=== PATIENT | female | born 1950 | race Caucasian/White ===

== ENCOUNTER 2019-12-29 18:18 | Inpatient (IN) | payer MEDICARE, OTHER ==
[2019-12-29] MEDS ORDERED: TYLENOL 325 MG ONE ×2 (18:42→18:55)
[2019-12-29] MEDS ORDERED: Sodium Chloride 0.9% 1000 ML 1,000 ML ONE (18:42)
[2019-12-29] MEDS ORDERED: Sodium Chloride 0.9% 1000 ML 1,000 ML IV STA (18:53)
[2019-12-29] MEDS ORDERED: TYLENOL 325 MG PO STA ×2 (18:53→18:54)
[2019-12-29] MEDS ORDERED: Ventolin Hfa MDI IH ONE (18:58)
[2019-12-29] MEDS ORDERED: VENTOLIN COMMON CANISTER IH STA (19:04)
[2019-12-29 19:11] LABS: Absolute Neutrophil Ct (ANC) 5.81 (1.4-6.9); BASOPHIL % 0.2 % (0.0-0.4); Basophil (Absolute #) 0.01 (0-0.4); Eosinophil (Absolute #) 0 (0-0.5); Hematocrit 37.4 % (35-47); Hemoglobin 12.3 gm/dl (12.0-16.0); Lymphocyte (Absolute #) 0.47 (1.0-4.6); Lymphocytes % 7.2 % (24.0-44.0); Mean Cell Volume 90.1 fl (78-100); Mean Corpuscular Hemoglobin 29.6 pg (26-32); Mean Corpuscular Hgb Concent. 32.9 g/dl (32-36); Mean Platelet Volume 11.6 fl (7.5-11.0); Monocyte (Absolute #) 0.22 (0.0-1.3); Monocytes % 3.4 % (0.0-12.0); Neutrophil % 89.2 % (36.0-66.0); Platelet Count 208 K/mm3 (150-450); Red Blood Count 4.15 M/mm3 (4.1-5.4); Red Cell Distribution Width 14.6 % (11.5-14.0); White Blood Count 6.5 K/mm3 (4.0-10.5)
[2019-12-29 19:26] LABS: Amourphous Crystal FEW /HPF (NEGATIVE); Appearance CLOUDY (CLEAR); Bacteria RARE /HPF (NEGATIVE); Bilirubin NEGATIVE (NEGATIVE); Blood MODERATE Ery/ul (0-5); Epithelial Cells RARE /HPF (FEW); Glucose NEGATIVE (NEGATIVE); Ketones SMALL (NEGATIVE); Leukocyte Esterase NEGATIVE (NEGATIVE); Mucus MODERATE /HPF (NEGATIVE); Nitrite NEGATIVE (NEGATIVE); Protein,Urine Dip 100 (Negative); Specific Gravity 1.027 (1.005-1.025); Urobilinogen 2 mg/dL (0-1)
--- NOTE | 2019-12-29 19:31 | ERPHSYRPT ---
- History of Present Illness Time Seen by Provider: 12/29/19 18:47 Source: patient Exam Limitations: no limitations Patient Subjective Stated Complaint: PT states "I have had a fever since friday and I am getting weaker and weaker. I have also had some shortness of breath." Triage Nursing Assessment: PT presented alert and oriented X 3, skin wpd tp came back in wheelchair unable to sit upright, pt weak and tachypneic. Physician History: 69 years old female presented to the ER with chief complaint of fever for the last 5 days. Initially was low-grade and gradually worsening. Taking over-the- counter antipyretics but does not seem working today. T-max of 102 today. She is also having mild to moderate nonproductive cough with minimal shortness of breath which started today. She is feeling weak dehydrated, fatigued and tired all the time with no energy to do her routine activities. Her symptoms of weakness get worse with ambulation and feels as if she was going to fall down. Denies any nausea vomiting or abdominal pain. No sore throat. No urinary symptoms. Denies any sick contact. Timing/Duration: day(s) (5), gradual onset, worse Fever Severity: moderate Fever Therapy PROPERTY FIELD INSPECTOR: Acetaminophen Associated Symptoms: cough, headache, muscle aches, shortness of breath, weakness, No abdominal pain, No chest pain, No nausea/vomiting, No rhinorrhea, No sore throat, No stiff neck, No syncope Allergies/Adverse Reactions: Sulfa (Sulfonamide Antibiotics) Adverse Reaction (Intermediate, Verified 18:51) abdominal pain Home Medications: Amlodipine Besylate 5 mg [Norvasc 5 mg] 5 mg PO DAILY 12/29/19 [History] Atorvastatin Calcium [Lipitor] 10 mg PO DAILY 12/29/19 [History] Metformin HCl 500 mg [Glucophage 500 MG] 500 mg PO BIDWM 12/29/19 [History ] Sitagliptin Phosphate [Januvia] 100 mg PO DAILY 12/29/19 [History] Hx Tetanus, Diphtheria Vaccination/Date Given: No Hx Influenza Vaccination/Date Given: No Hx Pneumococcal Vaccination/Date Given: No Immunizations Up to Date: Yes Travel Risk - International Travel If Yes where:: [facility] - Coronavirus Screening Has patient experienced Coronavirus symptoms: Yes Symptoms experienced: fever(equal or > 100.4 F), respiratory symptoms ( i.e.Cought,shortness of breath), weakness Date of fever onset:: 12/25/19 Date of respiratory symptoms onset:: 12/25/19 - Review of Systems Constitutional: Fever, Chills, Fatigue, Weakness Eyes: No Symptoms Ears, Nose, & Throat: No Symptoms Respiratory: Cough, Dyspnea on Exertion (HALL) Cardiac: No Symptoms Abdominal/Gastrointestinal: No Symptoms Genitourinary Symptoms: No Symptoms Musculoskeletal: Myalgias Skin: No Symptoms Neurological: No Symptoms Psychological: No Symptoms Endocrine: No Symptoms Hematologic/Lymphatic: No Symptoms Immunological/Allergic: No Symptoms - Past Medical History Pertinent Past Medical History: Yes Neurological History: No Pertinent History ENT History: No Pertinent History Cardiac History: High Cholesterol Respiratory History: No Pertinent History Endocrine Medical History: No Pertinent History Musculoskeletal History: No Pertinent History GI Medical History: No Pertinent History History: No Pertinent History Psycho-Social History: No Pertinent History Female Reproductive Disorders: No Pertinent History - Past Surgical History Past Surgical History: Yes Gastrointestinal: Appendectomy - Social History Smoking Status: Never smoker Exposure to second hand smoke: No Drug Use: none Patient Lives Alone: No - Female History Hx Now: No - Nursing Vital Signs Nursing Vital Signs: Initial Vital Signs Temperature 101.3 F 12/29/19 18:37 Pulse Rate 121 H 12/29/19 18:37 Respiratory Rate 28 H 12/29/19 18:37 Blood Pressure 164/82 12/29/19 18:37 O2 Sat by Pulse Oximetry 92 L 12/29/19 18:37 Pain Scale Pain Intensity 0 - Physical Exam General Appearance: no apparent distress, alert Eye Exam: PERRL/EOMI, eyes nml inspection ENT Exam: no apparent trauma, pharyngeal erythema Neck Exam: normal inspection, non-tender, supple, full range of motion Respiratory Exam: decreased breath sounds, decreased air movement, crackles/ rales Cardiovascular/Chest Exam: normal heart sounds, tachycardia Gastrointestinal/Abdominal Exam: soft, non tender, no distention, no mass, no guarding Extremity Exam: non-tender, normal range of motion, normal inspection Neurologic Exam: alert, oriented x 3, cooperative, marine drafter II-XII nml as tested, normal mood/affect Skin Exam: normal color SpO2 Interpretation: normal SpO2: 92 O2 Delivery: Room Air Ordered Tests: Active Orders 24 hr Category Date Time Status Coat Room Attendant STAT Care 12/29/19 18:51 Active EKG-ER Only STAT Care 12/29/19 18:51 Active Izaguirre [Catheter-[place] Izaguirre] STAT Care 12/29/19 18:51 Active IV Insertion STAT Care 12/29/19 18:51 Active IV Insertion-2nd Peripheral STAT Care 12/29/19 18:51 Active Oxygen-ED Only Nasal Cannula 2 lpm Care 12/29/19 18:52 Active Pulse Oximetry (ED) STAT Care 12/29/19 18:52 Active CHEST 1 VIEW (PORTABLE) Stat Exams 12/29/19 18:57 Taken BLOOD CULTURE Stat Lab 12/29/19 18:45 Received CBC W DIFF Stat Lab 12/29/19 18:40 Completed CMP Stat Lab 12/29/19 18:40 Completed CULTURE,URINE Stat Lab 12/29/19 18:55 Received Lactic Acid Stat Lab 12/29/19 19:10 Completed MAG [MAGNESIUM] Stat Lab 12/29/19 18:40 Completed UA W/RFX UR CULTURE Stat Lab 12/29/19 18:55 Completed Respiratory Therapy Assessment DAILY RT 12/29/19 19:34 Active Transfer Order Routine Transfer 12/29/19 Ordered Medication Summary Generic Name Dose Route Start Last Admin Trade Name Freq PRN Reason Stop Dose Admin Ceftriaxone Sodium/Dextrose 2 g in 50 mls @ 100 mls/hr 12/29/19 19:43 19:55 Rocephin 2 Gm-D5w 50ml Bag IV 12/29/19 20:12 100 mls/hr STAT STA 100 mls/hr Administration Azithromycin 500 mg in 250 mls @ 250 mls/hr 12/29/19 19:43 12/29/19 19:55 Zithromax 500 Mg/ 250 Ml Nacl Premix IV 12/29/19 20:42 250 mls/hr STAT STA 250 mls/hr Administration Discontinued Medications Generic Name Dose Route Start Last Admin Trade Name Freq PRN Reason Stop Dose Admin Acetaminophen Confirm 12/29/19 18:42 Tylenol 325 Mg Administered 12/29/19 18:43 Dose 650 mg .ROUTE .STK-MED ONE Acetaminophen 650 mg 12/29/19 18:53 12/29/19 18:56 Tylenol 325 Mg PO 12/29/19 18:54 Not Given STAT STA Acetaminophen 975 mg 12/29/19 18:54 12/29/19 18:57 Tylenol 325 Mg PO 12/29/19 18:55 975 mg STAT STA Administration Acetaminophen Confirm 12/29/19 18:55 Tylenol 325 Mg Administered 12/29/19 18:56 Dose 325 mg .ROUTE .STK-MED ONE Albuterol Sulfate 2 gm 12/29/19 18:58 Ventolin Hfa Mdi IH 12/29/19 18:59 STAT ONE Albuterol Sulfate 4 puff 12/29/19 19:04 12/29/19 19:18 Ventolin Common Canister IH 12/29/19 19:05 4 puff ONCE STA Administration Sodium Chloride Confirm 12/29/19 18:42 Sodium Chloride 0.9% 1000 Ml Administered 12/29/19 18:43 Dose 1,000 mls @ ud .ROUTE .STK-MED ONE Sodium Chloride 1,000 mls @ 999 mls/hr 12/29/19 18:53 12/29/19 18:57 Sodium Chloride 0.9% 1000 Ml IV 12/29/19 19:53 999 mls/hr .Q1H1M STA Administration Azithromycin Confirm 12/29/19 19:53 Zithromax 500 Mg/ 250 Ml Nacl Premix Administered 12/29/19 19:54 Dose 500 mg in 250 mls @ ud IV .STK-MED ONE Ceftriaxone Sodium/Dextrose Confirm 12/29/19 19:53 Rocephin 2 Gm-D5w 50ml Bag Administered 12/29/19 19:54 Dose 2 g in 50 mls @ ud IV .STK-MED ONE Lab/Rad Data: Laboratory Result Diagrams 12/29/19 18:40 12/29/19 18:40 Laboratory Results 12/29/19 12/29/19 12/29/19 Range/Units 19:10 18:55 18:55 WBC (4.0-10.5) K/mm3 RBC (4.1-5.4) M/mm3 Hgb (12.0-16.0) gm/dl Hct (35-47) % MCV (78-100) fl MCH (26-32) pg MCHC (32-36) g/dl RDW (11.5-14.0) % Plt Count (150-450) K/mm3 MPV (7.5-11.0) fl Gran % (36.0-66.0) % Eos # (Auto) (0-0.5) Absolute Lymphs (auto) (1.0-4.6) Absolute Monos (auto) (0.0-1.3) Lymphocytes % (24.0-44.0) % Monocytes % (0.0-12.0) % Eosinophils % (0.00-5.0) % Basophils % (0.0-0.4) % Absolute Granulocytes (1.4-6.9) Basophils # (0-0.4) Sodium (137-145) mmol/L Potassium (3.5-5.1) mmol/L Chloride (98-107) mmol/L Carbon Dioxide (22-30) mmol/L Anion Gap (5-15) MEQ/L BUN (7-17) mg/dL Creatinine (0.52-1.04) mg/dL Estimated GFR ML/MIN Glucose (74-106) mg/dL Lactic Acid 1.6 (0.4-2.0) Calcium (8.4-10.2) mg/dL Magnesium (1.6-2.3) mg/dL Total Bilirubin (0.2-1.3) mg/dL AST (14-36) U/L ALT (0-35) U/L Alkaline Phosphatase (38-126) U/L Serum Total Protein (6.3-8.2) g/dL Albumin (3.5-5.0) g/dL Urine Color JONNY (YELLOW) Urine Appearance CLOUDY (CLEAR) Urine pH 5.0 (5-6) Ur Specific [place] 1.027 (1.005-1.025) Urine Protein 100 (Negative) Urine Ketones SMALL (NEGATIVE) Urine Blood MODERATE (0-5) Rashel/ul Urine Nitrite NEGATIVE (NEGATIVE) Urine Bilirubin NEGATIVE (NEGATIVE) Urine Urobilinogen 2 (0-1) mg/dL Ur Leukocyte Esterase NEGATIVE (NEGATIVE) Urine WBC (Auto) 3-5 (0-5) /HPF Urine RBC (Auto) 3-5 (0-2) /HPF U Epithel Cells (Auto) RARE (FEW) /HPF Urine Bacteria (Auto) RARE (NEGATIVE) /HPF Amorphous Crystals FEW (NEGATIVE) /HPF Urine Mucus (Auto) MODERATE (NEGATIVE) /HPF Urine Culture Reflexed ORDERED SEPARATELY (NO) Urine Glucose NEGATIVE (NEGATIVE) mg/dL Influenza Type A Ag NEGATIVE (NEGATIVE) Influenza Type B Ag NEGATIVE (NEGATIVE) RSV (PCR) NEGATIVE (Negative) Group A Strep Antibody NOT DETECTED (NEGATIVE) 12/29/19 12/29/19 12/29/19 Range/Units 18:40 18:40 18:40 WBC 6.5 (4.0-10.5) K/mm3 RBC 4.15 (4.1-5.4) M/mm3 Hgb 12.3 (12.0-16.0) gm/dl Hct 37.4 (35-47) % MCV 90.1 (78-100) fl MCH 29.6 (26-32) pg MCHC 32.9 (32-36) g/dl RDW 14.6 H (11.5-14.0) % Plt Count 208 (150-450) K/mm3 MPV 11.6 H (7.5-11.0) fl Gran % 89.2 H (36.0-66.0) % Eos # (Auto) 0 (0-0.5) Absolute Lymphs (auto) 0.47 L (1.0-4.6) Absolute Monos (auto) 0.22 (0.0-1.3) Lymphocytes % 7.2 L (24.0-44.0) % Monocytes % 3.4 (0.0-12.0) % Eosinophils % 0.0 (0.00-5.0) % Basophils % 0.2 (0.0-0.4) % Absolute Granulocytes 5.81 (1.4-6.9) Basophils # 0.01 (0-0.4) Sodium 130 L (137-145) mmol/L Potassium 3.7 (3.5-5.1) mmol/L Chloride 97 L (98-107) mmol/L Carbon Dioxide 21 L (22-30) mmol/L Anion Gap 16.0 H (5-15) MEQ/L BUN 19 H (7-17) mg/dL Creatinine 1.04 (0.52-1.04) mg/dL Estimated GFR 55.5 ML/MIN Glucose 162 H (74-106) mg/dL Lactic Acid (0.4-2.0) Calcium 8.2 L (8.4-10.2) mg/dL Magnesium 2.0 (1.6-2.3) mg/dL Total Bilirubin 0.90 (0.2-1.3) mg/dL AST 76 H (14-36) U/L ALT 24 (0-35) U/L Alkaline Phosphatase 81 (38-126) U/L Serum Total Protein 7.0 (6.3-8.2) g/dL Albumin 3.5 (3.5-5.0) g/dL Urine Color (YELLOW) Urine Appearance (CLEAR) Urine pH (5-6) Ur Specific [place] (1.005-1.025) Urine Protein (Negative) Urine Ketones (NEGATIVE) Urine Blood (0-5) Rashel/ul Urine Nitrite (NEGATIVE) Urine Bilirubin (NEGATIVE) Urine Urobilinogen (0-1) mg/dL Ur Leukocyte Esterase (NEGATIVE) Urine WBC (Auto) (0-5) /HPF Urine RBC (Auto) (0-2) /HPF U Epithel Cells (Auto) (FEW) /HPF Urine Bacteria (Auto) (NEGATIVE) /HPF Amorphous Crystals (NEGATIVE) /HPF Urine Mucus (Auto) (NEGATIVE) /HPF Urine Culture Reflexed (NO) Urine Glucose (NEGATIVE) mg/dL Influenza Type A Ag (NEGATIVE) Influenza Type B Ag (NEGATIVE) RSV (PCR) (Negative) Group A Strep Antibody (NEGATIVE) - Progress Progress: improved, re-examined Progress Note: 12/29/19 19:52 69Years old is evaluated for fever shortness of breath cough and generalized body aches/fatigue. Patient was tachycardic with a fever of 104 on presentation. She is given fluid bolus and Tylenol, on reevaluation her fever is coming down and tachycardia is also better. She has normal white count, chest x-ray consistent with right lower lobe infiltrative pneumonia. Started on Rocephin/Zithromax. We will also obtain COVID testing and will keep her in COVID unit. Discussed with Dr. Regalado and patient is being admitted Discussed with : Other ([place]) Counseled pt/family regarding: lab results, diagnosis, rad results - Departure Departure Disposition: In-patient Admission Clinical Impression: Suspected COVID-19 virus infection Pneumonia Qualifiers: Pneumonia type: due to unspecified organism Laterality: right Lung location: lower lobe of lung Qualified Code(s): J18.9 - Pneumonia, unspecified organism Sepsis Qualifiers: Sepsis type: sepsis due to unspecified organism Sepsis acute organ dysfunction status: unspecified Qualified Code(s): A41.9 - Sepsis, unspecified organism Condition: Stable Critical Care Time: Yes Critical Care Time(excluding separately billable procedures): Critical 30-74 mins Referrals: PAM MCCARTHY [Primary Care Provider] -
[2019-12-29 19:43] LABS: INFLUENZA A NEGATIVE (NEGATIVE); INFLUENZA B NEGATIVE (NEGATIVE); RESPIRATORY SYNCTIAL VIRUS NEGATIVE (Negative)
[2019-12-29] MEDS ORDERED: ROCEPHIN 2 Gm-D5w 50ML BAG** 2 G/50 ML IVPB IV STA (19:43)
[2019-12-29] MEDS ORDERED: Zithromax 500 MG/ 250 ML NaCl Premix 500 MG/250 ML IVPB IV STA (19:43)
[2019-12-29] MEDS ORDERED: Zithromax 500 MG/ 250 ML NaCl Premix 500 MG/250 ML IVPB IV ONE (19:53)
[2019-12-29] MEDS ORDERED: ROCEPHIN 2 Gm-D5w 50ML BAG** 2 G/50 ML IVPB IV ONE (19:53)
[2019-12-29 19:54] LABS: ALBUMIN 3.5 g/dL (3.5-5.0); BILIRUBIN,TOTAL 0.9 mg/dL (0.2-1.3); Calcium 8.2 mg/dL (8.4-10.2); Creatinine 1 1.04 mg/dL (0.52-1.04); Potassium 3.7 mmol/L (3.5-5.1)
[2019-12-29] MEDS ORDERED: Zofran 4 MG/2 ML VIAL IV PRN (20:20)
[2019-12-29] MEDS ORDERED: HUMALOG SQ PRN (20:20)
[2019-12-29] MEDS ORDERED: TYLENOL 325 MG PO PRN (20:20)
[2019-12-29 20:47] LABS: Slide Review 1 YES
[2019-12-29] MEDS ORDERED: Pepcid 20 MG VIAL IV SCH (22:00)
[2019-12-29] MEDS ORDERED: Zocor 10MG ONE (22:34)
[2019-12-29] MEDS: Zocor 10MG PO SCH (23:00)
[2019-12-30 04:56] LABS: Hematocrit 35.4 % (35-47); Hemoglobin 11.6 gm/dl (12.0-16.0); Mean Cell Volume 91.7 fl (78-100); Mean Corpuscular Hemoglobin 30.1 pg (26-32); Mean Corpuscular Hgb Concent. 32.8 g/dl (32-36); Mean Platelet Volume 11.4 fl (7.5-11.0); Platelet Count 182 K/mm3 (150-450); Red Blood Count 3.86 M/mm3 (4.1-5.4); Red Cell Distribution Width 14.9 % (11.5-14.0); White Blood Count 5.3 K/mm3 (4.0-10.5)
[2019-12-30 05:08] LABS: ALBUMIN 3.3 g/dL (3.5-5.0); ALKALINE PHOSPHATASE 81 U/L (38-126); ANION GAP 15.4 MEQ/L (5-15); BLOOD UREA NITROGEN 18 mg/dL (7-17); CHLORIDE 101 mmol/L (98-107); Carbon Dioxide 22 mmol/L (22-30); Creatinine 1 0.91 mg/dL (0.52-1.04); Glucose 156 mg/dL (74-106); Potassium 3.2 mmol/L (3.5-5.1); SGOT/AST 77 U/L (14-36); SGPT/ALT 25 U/L (0-35); SODIUM 135 mmol/L (137-145); Total Protein 6.6 g/dL (6.3-8.2)
[2019-12-30] MEDS: Sodium Chloride 0.9% 10 ML FLUSH Syringe IV SCH ×3 (05:41→21:27)
[2019-12-30] MEDS ORDERED: VENTOLIN COMMON CANISTER IH SCH (07:00)
[2019-12-30] MEDS ORDERED: MAALOX ES 30 ML UNIT DOSE PO PRN (07:00)
[2019-12-30] MEDS ORDERED: MEDICATION INTERVENTION MC SCH (07:15)
[2019-12-30 07:57] LABS: BAND 28 % (0.0-2.0); Lymphocytes 11 % (24-44); Monocyte 3 % (0.0-12.0); Neutrophils 58 % (36.0-66.0); Platelet Estimate INCREASED (NORMAL); Polychromasia 1+; Total Cells Counted 100
[2019-12-30] MEDS ORDERED: Glucophage 500 MG PO SCH ×2 (08:00→22:00)
[2019-12-30] MEDS: TYLENOL EXTRA STRENGTH 500 MG PO PRN ×3 (08:22→20:25)
--- NOTE | 2019-12-30 08:54 | XRAY ---
Dictation: Fever and short of breath. Comparison: None Portable chest demonstrates right infrahilar infiltrate without consolidation/large effusion. Remaining heart and left lung unremarkable. Bony thorax intact with mild degenerative changes.
[2019-12-30] MEDS: Klor Con 10 MEQ PO SCH ×2 (09:43→21:25)
[2019-12-30] MEDS: Januvia 50 MG PO SCH (09:43)
[2019-12-30] MEDS: Vitamin C 500 MG PO SCH (09:43)
[2019-12-30] MEDS: NORVASC 5 MG PO SCH (09:43)
[2019-12-30] MEDS: ENOXAPARIN SODIUM SQ SCH (09:43)
[2019-12-30] MEDS ORDERED: LUTEIN PO SCH (10:00)
[2019-12-30] MEDS ORDERED: ENOXAPARIN SODIUM SQ SCH (10:00)
[2019-12-30] MEDS ORDERED: ZEAXANTHIN PO SCH (10:00)
[2019-12-30] MEDS: Glucophage 500 MG PO SCH (14:49)
[2019-12-30] MEDS: Pepcid 20 MG PO SCH (21:25)
[2019-12-30] MEDS: Zocor 10MG PO SCH (21:27)
[2019-12-30] MEDS: ROCEPHIN 1 Gm-D5w 50 ml Bag** 1 G/50 ML IVPB IV SCH (21:27)
[2019-12-30] MEDS: VENTOLIN COMMON CANISTER IH PRN (21:58)
[2019-12-30] MEDS: Zithromax 500 MG/ 250 ML NaCl Premix 500 MG/250 ML IVPB IV SCH (22:15)
[2019-12-31] MEDS: Sodium Chloride 0.9% 10 ML FLUSH Syringe IV SCH ×3 (05:05→22:07)
[2019-12-31 05:23] LABS: Hematocrit 35.1 % (35-47); Hemoglobin 11.5 gm/dl (12.0-16.0); Mean Cell Volume 91.4 fl (78-100); Mean Corpuscular Hemoglobin 29.9 pg (26-32); Mean Corpuscular Hgb Concent. 32.8 g/dl (32-36); Mean Platelet Volume 11.4 fl (7.5-11.0); Platelet Count 182 K/mm3 (150-450); Red Blood Count 3.84 M/mm3 (4.1-5.4); Red Cell Distribution Width 14.9 % (11.5-14.0); White Blood Count 3.5 K/mm3 (4.0-10.5)
[2019-12-31 05:27] LABS: ANION GAP 13.7 MEQ/L (5-15); Potassium 3.5 mmol/L (3.5-5.1)
[2019-12-31] MEDS: TYLENOL EXTRA STRENGTH 500 MG PO PRN ×2 (06:51→15:25)
[2019-12-31] MEDS: Glucophage 500 MG PO SCH ×2 (07:43→16:19)
[2019-12-31] MEDS ORDERED: Klor Con 10 MEQ PO ONE (09:38)
[2019-12-31] MEDS: Januvia 50 MG PO SCH (09:55)
[2019-12-31] MEDS: NORVASC 5 MG PO SCH (09:55)
[2019-12-31] MEDS: Vitamin C 500 MG PO SCH (09:55)
[2019-12-31] MEDS: ENOXAPARIN SODIUM SQ SCH (09:55)
[2019-12-31] MEDS: Ativan 1 MG PO PRN ×2 (09:56→15:25)
[2019-12-31] MEDS: Klor Con 10 MEQ PO SCH ×2 (09:56→22:04)
--- NOTE | 2019-12-31 11:21 | XRAY ---
Indication: Fever and short of breath. Comparison: December 29, 2019. Portable apical lordotic chest demonstrates minimal clearing of previous right infrahilar infiltrate. Remaining heart and lungs unremarkable. No new cardiopulmonary abnormalities.
[2019-12-31] MEDS: Pepcid 20 MG PO SCH (22:04)
[2019-12-31] MEDS: Zocor 10MG PO SCH (22:05)
[2019-12-31] MEDS: ROCEPHIN 1 Gm-D5w 50 ml Bag** 1 G/50 ML IVPB IV SCH (22:06)
[2019-12-31] MEDS: Zithromax 500 MG/ 250 ML NaCl Premix 500 MG/250 ML IVPB IV SCH (22:07)
[2020-01-01] MEDS: Ativan 1 MG PO PRN (02:30)
[2020-01-01] MEDS: Sodium Chloride 0.9% 10 ML FLUSH Syringe IV SCH ×3 (05:03→20:45)
[2020-01-01] MEDS: TYLENOL EXTRA STRENGTH 500 MG PO PRN (06:16)
[2020-01-01 06:33] LABS: Hematocrit 34.4 % (35-47); Hemoglobin 11.2 gm/dl (12.0-16.0); Mean Corpuscular Hemoglobin 29.6 pg (26-32); Mean Corpuscular Hgb Concent. 32.6 g/dl (32-36); Mean Platelet Volume 11.5 fl (7.5-11.0); Platelet Count 231 K/mm3 (150-450); Red Blood Count 3.78 M/mm3 (4.1-5.4); Red Cell Distribution Width 15.1 % (11.5-14.0); White Blood Count 4.2 K/mm3 (4.0-10.5)
[2020-01-01 06:40] LABS: ALBUMIN 3.2 g/dL (3.5-5.0); ALKALINE PHOSPHATASE 102 U/L (38-126); ANION GAP 13.9 MEQ/L (5-15); BLOOD UREA NITROGEN 13 mg/dL (7-17); CHLORIDE 100 mmol/L (98-107); Calcium 8.3 mg/dL (8.4-10.2); Carbon Dioxide 23 mmol/L (22-30); Creatinine 1 0.83 mg/dL (0.52-1.04); Glucose 107 mg/dL (74-106); Potassium 3.7 mmol/L (3.5-5.1); SGOT/AST 127 U/L (14-36); SGPT/ALT 33 U/L (0-35); SODIUM 133 mmol/L (137-145); Total Protein 6.5 g/dL (6.3-8.2)
[2020-01-01] MEDS: Glucophage 500 MG PO SCH ×2 (07:19→17:23)
[2020-01-01] MEDS: ENOXAPARIN SODIUM SQ SCH (09:59)
[2020-01-01] MEDS: Januvia 50 MG PO SCH (09:59)
[2020-01-01] MEDS: NORVASC 5 MG PO SCH (10:00)
[2020-01-01] MEDS: Vitamin C 500 MG PO SCH (10:00)
[2020-01-01] MEDS: Klor Con 10 MEQ PO SCH ×2 (10:00→20:45)
[2020-01-01] MEDS: Vibramycin 100 MG PO SCH (11:41)
[2020-01-01] MEDS ORDERED: Ativan 1 MG PO PRN (12:26)
[2020-01-01] MEDS: HUMALOG SQ PRN (17:23)
[2020-01-01] MEDS: ROCEPHIN 1 Gm-D5w 50 ml Bag** 1 G/50 ML IVPB IV SCH (20:44)
[2020-01-01] MEDS: Pepcid 20 MG PO SCH (20:44)
[2020-01-01] MEDS: Zocor 10MG PO SCH (20:44)
[2020-01-02] MEDS: TYLENOL EXTRA STRENGTH 500 MG PO PRN (01:10)
[2020-01-02 02:58] LABS: A-aADO2 57; ABG POTASSIUM 3.2 (3.5-5.1); ABG SITE RIGHT BRACHIAL; ARTERIAL BLD GAS O2 SATURATION 99.1 % (95-100); ARTERIAL BLOOD GAS BASE EXCESS 0.6 (-2.0-2.0); ARTERIAL BLOOD GAS FIO2 28 %; ARTERIAL BLOOD GAS PCO2 36 mmHg (35-45); ARTERIAL BLOOD GAS PO2 98 mmHg (75-100); ARTERIAL BLOOD GAS pH 7.44 (7.35-7.45); HCO3- 24.5 (22-28); HGB O2 SAT 96.7 g/dF (94-100); Methhemoglobin 1.3 % (1.4-1.5); paO2 pAO1 0.63
[2020-01-02 03:40] LABS: Hemoglobin 10.5 gm/dl (12.0-16.0); Mean Cell Volume 91.2 fl (78-100); Mean Corpuscular Hgb Concent. 31.8 g/dl (32-36); Mean Platelet Volume 10.3 fl (7.5-11.0); Platelet Count 218 K/mm3 (150-450); Red Blood Count 3.62 M/mm3 (4.1-5.4); Red Cell Distribution Width 15.3 % (11.5-14.0)
[2020-01-02 03:52] LABS: ALKALINE PHOSPHATASE 99 U/L (38-126); ANION GAP 13.2 MEQ/L (5-15); BLOOD UREA NITROGEN 13 mg/dL (7-17); CHLORIDE 99 mmol/L (98-107); Calcium 8.3 mg/dL (8.4-10.2); Carbon Dioxide 26 mmol/L (22-30); Creatinine 1 0.87 mg/dL (0.52-1.04); Glucose 161 mg/dL (74-106); Potassium 3.3 mmol/L (3.5-5.1); SGOT/AST 137 U/L (14-36); SGPT/ALT 34 U/L (0-35); SODIUM 134 mmol/L (137-145); Total Protein 6.3 g/dL (6.3-8.2)
[2020-01-02] MEDS: VENTOLIN COMMON CANISTER IH PRN ×2 (03:58→20:08)
[2020-01-02 04:02] LABS: NT PRO BNP 794 pg/mL (0-900)
[2020-01-02 04:03] LABS: TROPONIN < 0.012 ng/mL (0.000-0.034)
[2020-01-02] MEDS: Sodium Chloride 0.9% 10 ML FLUSH Syringe IV SCH ×3 (05:36→21:13)
--- NOTE | 2020-01-02 07:25 | XRAY ---
Indication: Pneumonia. Change in lung sounds. Comparison: December 31, 2019. Portable apical lordotic chest unchanged again demonstrating right infrahilar infiltrate without consolidation/large effusion. Remaining heart and left lung unremarkable. Comment: Preliminary interpretation was made by [facility]. No critical discrepancy.
[2020-01-02] MEDS: Glucophage 500 MG PO SCH ×2 (08:10→16:54)
[2020-01-02] MEDS: Januvia 50 MG PO SCH (09:07)
[2020-01-02] MEDS: Vitamin C 500 MG PO SCH (09:07)
[2020-01-02] MEDS: Klor Con 10 MEQ PO SCH ×2 (09:07→21:13)
[2020-01-02] MEDS: ENOXAPARIN SODIUM SQ SCH (09:07)
[2020-01-02] MEDS: NORVASC 5 MG PO SCH (09:07)
[2020-01-02] MEDS ORDERED: Zithromax 500 MG/ 250 ML NaCl Premix 500 MG/250 ML IVPB IV SCH (10:00)
[2020-01-02] MEDS: Vibramycin 100 MG PO SCH (11:31)
--- NOTE | 2020-01-02 12:56 | PCM.NOTE ---
Date and Time: 01/02/20 1248 Subjective Assessment: Overnight pt was tachypneic - repeat CXR unchanged, ABG wnl, O2 sat fine on 2L NC, troponin nl and EKG nonacute. Zithromax IV was added to IV rocephin. Pt was better by this morning. I saw the patient as she had just returned from the bathroom, so she was tachypneic then as well. Feeling very weak. Still having some cough. Eliza po but decreased appetite. - Review of Systems Constitutional: Fever (Tmax 101.1), Weakness Respiratory: Cough, Short Of Breath Objective Exam General Appearance: mild distress, alert, other (short of breath) Neurologic Exam: oriented x 3, cooperative Skin Exam: normal color, warm, dry, No rash Ears, Nose, Throat Exam: moist mucous membranes Neck Exam: normal inspection Respiratory Exam: diminished breath sounds, rhonchi (RLL), No wheezing Cardiovascular Exam: regular rate/rhythm, normal heart sounds, No murmur Extremity Exam: swelling (trace pretibial bilat) OBJECTIVE DATA Vital Signs: Vital Signs - 24 hr Temp Pulse Resp BP Pulse Ox 01/02/20 12:00 99.4 F 100 H 25 H 131/84 91 L 01/02/20 08:00 97.7 F 88 28 H 124/77 92 L 01/02/20 07:14 104 H 24 95 01/02/20 04:00 98.2 F 119 H 25 H 116/60 93 L 01/02/20 03:58 109 H 34 H 93 L 01/01/20 23:38 101.1 F 98 H 30 H 136/71 94 L 01/01/20 20:00 98.9 F 102 H 18 120/70 96 01/01/20 19:11 101 H 29 H 96 01/01/20 15:40 98.4 F 86 18 128/67 95 Pain Assessment - Last Documented Pain Intensity 0 Pain Scale Used 0-10 Pain Scale Intake and Output: Intake & Output 12/31/19 01/01/20 01/02/20 01/03/20 11:59 11:59 11:59 11:59 Intake Total 1373 311 7646 Output Total 1400 1350 2500 Balance -182 -659 -400 Weight 101.4 kg 98.8 kg 98.2 kg Lab Results: Accuchecks Date 01/02/20 Date 01/02/20 Date 01/01/20 Time 11:30 Time 07:30 Time 16:30 Accucheck Value: 167 Accucheck Value: 186 Accucheck Value: 167 Accucheck Value: 272 Lab Results-Last 24 Hours 01/02/20 01/02/20 01/02/20 Range/Units 02:49 02:49 03:37 WBC 4.0 (4.0-10.5) K/mm3 RBC 3.62 L (4.1-5.4) M/mm3 Hgb 10.5 L (12.0-16.0) gm/dl Hct 33.0 L (35-47) % MCV 91.2 (78-100) fl MCH 29.0 (26-32) pg MCHC 31.8 L (32-36) g/dl RDW 15.3 H (11.5-14.0) % Plt Count 218 (150-450) K/mm3 MPV 10.3 (7.5-11.0) fl Puncture Site RIGHT BRACHIAL pCO2 36 (35-45) mmHg pO2 98 (75-100) mmHg Base Excess 0.6 (-2.0-2.0) O2 Saturation 96.7 (94-100) g/dF ABG pH 7.44 (7.35-7.45) ABG HCO3 24.5 (22-28) ABG O2 Sat (Measured) 99.1 (95-100) % Papo Test NOT APPLICABLE A-a Gradient 57 a/A Ratio 0.63 Hemoglobin 11.0 Carboxyhemoglobin 1.0 (0.0-6.9) % THgb Methemoglobin 1.3 L (1.4-1.5) % Potassium 3.2 L (3.5-5.1) Temperature 37.0 C POC O2 Flow Rate 28 % Sodium (137-145) mmol/L Chloride (98-107) mmol/L Carbon Dioxide (22-30) mmol/L Anion Gap (5-15) MEQ/L BUN (7-17) mg/dL Creatinine (0.52-1.04) mg/dL Estimated GFR ML/MIN Glucose (74-106) mg/dL Lactic Acid 1.0 (0.4-2.0) Calcium (8.4-10.2) mg/dL Magnesium (1.6-2.3) mg/dL Total Bilirubin (0.2-1.3) mg/dL AST (14-36) U/L ALT (0-35) U/L Alkaline Phosphatase (38-126) U/L Troponin I (0.000-0.034) ng/mL NT-Pro-B Natriuret Pep (0-900) pg/mL Serum Total Protein (6.3-8.2) g/dL Albumin (3.5-5.0) g/dL 01/02/20 01/02/20 01/02/20 Range/Units 03:37 03:37 03:37 WBC (4.0-10.5) K/mm3 RBC (4.1-5.4) M/mm3 Hgb (12.0-16.0) gm/dl Hct (35-47) % MCV (78-100) fl MCH (26-32) pg MCHC (32-36) g/dl RDW (11.5-14.0) % Plt Count (150-450) K/mm3 MPV (7.5-11.0) fl Puncture Site pCO2 (35-45) mmHg pO2 (75-100) mmHg Base Excess (-2.0-2.0) O2 Saturation (94-100) g/dF ABG pH (7.35-7.45) ABG HCO3 (22-28) ABG O2 Sat (Measured) (95-100) % Papo Test A-a Gradient a/A Ratio Hemoglobin Carboxyhemoglobin (0.0-6.9) % THgb Methemoglobin (1.4-1.5) % Potassium 3.3 L (3.5-5.1) Temperature C POC O2 Flow Rate % Sodium 134 L (137-145) mmol/L Chloride 99 (98-107) mmol/L Carbon Dioxide 26 (22-30) mmol/L Anion Gap 13.2 (5-15) MEQ/L BUN 13 (7-17) mg/dL Creatinine 0.87 (0.52-1.04) mg/dL Estimated GFR > 60.0 ML/MIN Glucose 161 H (74-106) mg/dL Lactic Acid (0.4-2.0) Calcium 8.3 L (8.4-10.2) mg/dL Magnesium 1.9 (1.6-2.3) mg/dL Total Bilirubin 0.50 (0.2-1.3) mg/dL AST 137 H (14-36) U/L ALT 34 (0-35) U/L Alkaline Phosphatase 99 (38-126) U/L Troponin I < 0.012 (0.000-0.034) ng/mL NT-Pro-B Natriuret Pep 794 (0-900) pg/mL Serum Total Protein 6.3 (6.3-8.2) g/dL Albumin 3.0 L (3.5-5.0) g/dL Radiology Exams: Radiology Procedures Category Date Time Status CHEST 1 VIEW (PORTABLE) Stat Exams 01/02/20 03:18 Completed Multi-Disciplinary Progress Notes: Multi-Disciplinary Progress Notes 01/02/20 05:07 Respiratory Note by Rossana Woodward 01/02/2020 02:40 PT IS TACHYPNEIC AND DIAPHORETIC, AND HER LUNGS HAVE CRACKLES AND WHEEZES UPON AUSCULTATION . AN ABG AND A LACTIC ACID WERE ORDERED AT THIS TIME PER R.T. PROTOCOL DUE TO PT'S WORSENING CONDITION. PT'S NURSE REQUESTED THE LACTIC DUE TO PT'S PNEUMONIA AND POSSIBLE SEPSIS. DR. RIGGS WAS CALLED WITH THE RESULTS OF THE ABG. Initialized on 01/02/20 05:07 - END OF NOTE Assessment/Plan (1) Pneumonia Current Visit: Yes Status: Acute Qualifiers: Pneumonia type: due to unspecified organism Laterality: right Lung location: lower lobe of lung Qualified Code(s): J18.9 - Pneumonia, unspecified organism Assessment & Plan: Changed IV antibiotics from rocephin/zithromax to levaquin. I'm unsure why she' s also on doxycycline 100mg once daily and am trying to find the answer to that. Code(s): J18.9 - PNEUMONIA, UNSPECIFIED ORGANISM (2) Hypokalemia Current Visit: Yes Status: Acute Assessment & Plan: restarted IV fluids slowly with K+ added. Code(s): E87.6 - HYPOKALEMIA
[2020-01-02] MEDS: solu-MEDROL 40 MG IV SCH ×2 (15:29→21:13)
[2020-01-02] MEDS: Sodium Chloride 0.9% W/ 20 mEq KCl/LITER 1,000 ML IV SCH (15:29)
[2020-01-02] MEDS: Zocor 10MG PO SCH (21:12)
[2020-01-02] MEDS: Pepcid 20 MG PO SCH (21:13)
[2020-01-03 05:17] LABS: Hematocrit 32.7 % (35-47); Hemoglobin 10.1 gm/dl (12.0-16.0); Mean Corpuscular Hgb Concent. 30.9 g/dl (32-36); Mean Platelet Volume 10.8 fl (7.5-11.0); Platelet Count 255 K/mm3 (150-450); Red Blood Count 3.48 M/mm3 (4.1-5.4); Red Cell Distribution Width 15.5 % (11.5-14.0); White Blood Count 3.6 K/mm3 (4.0-10.5)
[2020-01-03 05:41] LABS: ALKALINE PHOSPHATASE 99 U/L (38-126); ANION GAP 15.6 MEQ/L (5-15); BLOOD UREA NITROGEN 15 mg/dL (7-17); CHLORIDE 102 mmol/L (98-107); Calcium 8.8 mg/dL (8.4-10.2); Carbon Dioxide 25 mmol/L (22-30); Creatinine 1 0.73 mg/dL (0.52-1.04); Glucose 260 mg/dL (74-106); Potassium 4.3 mmol/L (3.5-5.1); SGOT/AST 156 U/L (14-36); SGPT/ALT 45 U/L (0-35); SODIUM 138 mmol/L (137-145); Total Protein 6.3 g/dL (6.3-8.2)
[2020-01-03] MEDS: Glucophage 500 MG PO SCH ×2 (07:49→17:00)
[2020-01-03] MEDS: Sodium Chloride 0.9% 10 ML FLUSH Syringe IV SCH ×3 (07:52→21:51)
[2020-01-03] MEDS: ENOXAPARIN SODIUM SQ SCH (09:56)
[2020-01-03] MEDS: Januvia 50 MG PO SCH (09:57)
[2020-01-03] MEDS: Levofloxacin 500MG/100ML D5W 500 MG/100 ML BAG IV SCH (09:57)
[2020-01-03] MEDS: Klor Con 10 MEQ PO SCH ×2 (09:57→21:51)
[2020-01-03] MEDS: solu-MEDROL 40 MG IV SCH ×2 (09:57→21:50)
[2020-01-03] MEDS: NORVASC 5 MG PO SCH (09:57)
[2020-01-03] MEDS: Vitamin C 500 MG PO SCH (09:58)
[2020-01-03] MEDS: Sodium Chloride 0.9% W/ 20 mEq KCl/LITER 1,000 ML IV SCH (10:00)
--- NOTE | 2020-01-03 10:46 | PCM.NOTE ---
Date and Time: 01/03/20 1040 Subjective Assessment: Patient reports continued fatigue. She reports fever is better. She was tested twice for covid and both were negative. She has no sick contacts. She denies runny nose or cough at this time. She denies feeling short of breath. She denies smoking. She denies hx of copd or asthma. She denies wearing oxygen at home. Handwritten notes from when she was on the covid unit are illegible. Dr. Vines noted that she changed her antibiotics yesterday. Patient does not feel strong enough to take care of herself at home at this time. - Review of Systems Constitutional: Fatigue Respiratory: No Symptoms Cardiac: No Symptoms Abdominal/Gastrointestinal: No Symptoms Objective Exam General Appearance: no apparent distress, obese, other (cough with deep breath; mild tachypnea) Neurologic Exam: alert, cooperative, normal mood/affect Skin Exam: normal color, warm, dry Respiratory Exam: normal breath sounds, lungs clear, No crackles/rales, No rhonchi, No wheezing Cardiovascular Exam: regular rate/rhythm, normal heart sounds, No murmur, No friction rub, No gallop Gastrointestinal/Abdomen Exam: soft, normal bowel sounds, No tenderness, No distention, No mass OBJECTIVE DATA Vital Signs: Vital Signs - 24 hr Temp Pulse Resp BP Pulse Ox 01/03/20 08:00 97.5 F 69 21 127/60 97 01/03/20 07:23 70 26 H 95 01/03/20 03:28 97.5 F 90 21 132/87 95 01/02/20 23:47 97.6 F 84 20 127/68 94 L 01/02/20 20:08 94 H 28 H 92 L 01/02/20 19:49 97.9 F 93 H 15 133/67 95 01/02/20 16:00 98.0 F 116 H 16 129/85 94 L 01/02/20 12:00 99.4 F 100 H 25 H 131/84 91 L Oxygen-Last 24 hours Oxygen Flowrate (L/min)-RT 2 Oxygen Flowrate (L/min)-RT 2 Pain Assessment - Last Documented Pain Intensity 0 Pain Scale Used 0-10 Pain Scale Intake and Output: Intake & Output 01/01/20 01/02/20 01/03/20 01/04/20 06:59 06:59 06:59 06:59 Intake Total 476 1860 1353 240 Output Total 1350 2500 100 400 Balance -034 -328 1253 -160 Weight 98.8 kg 98.2 kg 98.4 kg Lab Results: Accuchecks Date 01/02/20 Date 01/02/20 Date 01/02/20 Time 22:00 Time 16:30 Time 11:30 Accucheck Value: 260 Accucheck Value: 228 Accucheck Value: 164 Accucheck Value: 167 Lab Results-Last 24 Hours 01/03/20 01/03/20 Range/Units 04:45 04:45 WBC 3.6 L (4.0-10.5) K/mm3 RBC 3.48 L (4.1-5.4) M/mm3 Hgb 10.1 L (12.0-16.0) gm/dl Hct 32.7 L (35-47) % MCV 94.0 (78-100) fl MCH 29.0 (26-32) pg MCHC 30.9 L (32-36) g/dl RDW 15.5 H (11.5-14.0) % Plt Count 255 (150-450) K/mm3 MPV 10.8 (7.5-11.0) fl Sodium 138 (137-145) mmol/L Potassium 4.3 D (3.5-5.1) mmol/L Chloride 102 (98-107) mmol/L Carbon Dioxide 25 (22-30) mmol/L Anion Gap 15.6 H (5-15) MEQ/L BUN 15 (7-17) mg/dL Creatinine 0.73 (0.52-1.04) mg/dL Estimated GFR > 60.0 ML/MIN Glucose 260 H (74-106) mg/dL Calcium 8.8 (8.4-10.2) mg/dL Total Bilirubin 0.50 (0.2-1.3) mg/dL AST 156 H (14-36) U/L ALT 45 H (0-35) U/L Alkaline Phosphatase 99 (38-126) U/L Serum Total Protein 6.3 (6.3-8.2) g/dL Albumin 3.0 L (3.5-5.0) g/dL Radiology Exams: Radiology Procedures Category Date Time Status CHEST 1 VIEW (PORTABLE) Stat Exams 01/02/20 03:18 Completed CHEST 2 VIEWS (PA AND LAT) Routine Exams 01/03/20 Ordered Assessment/Plan (1) Pneumonia Current Visit: Yes Status: Acute Qualifiers: Pneumonia type: due to unspecified organism Laterality: right Lung location: lower lobe of lung Qualified Code(s): J18.9 - Pneumonia, unspecified organism Assessment & Plan: Continue doxycycline (stated 01/01/20) and levofloxacin started 01/03/20. She was on ceftiaxone from 01/01/20 to 01/02/20. Continue oxygen as needed. RT following as needed. Code(s): J18.9 - PNEUMONIA, UNSPECIFIED ORGANISM (2) Tachypnea Current Visit: Yes Status: Acute Assessment & Plan: Checking D-dimer and BNP. Based on these results may need chest CT or cardiac Echo. Code(s): R06.82 - TACHYPNEA, NOT ELSEWHERE CLASSIFIED (3) Diabetes type 2, controlled Current Visit: Yes Status: Acute Qualifiers: Diabetes mellitus jail insulin use: without watermaster use Diabetes mellitus complication status: without complication Qualified Code(s): E11.9 - Type 2 diabetes mellitus without complications Assessment & Plan: Continue current medication. Code(s): E11.9 - TYPE 2 DIABETES MELLITUS WITHOUT COMPLICATIONS (4) Elevated liver function tests Current Visit: Yes Status: Acute Assessment & Plan: May be due to illness or medication. Will check hep a, b, and C panel. Will continue to monitor. Code(s): R79.89 - OTHER SPECIFIED ABNORMAL FINDINGS OF BLOOD CHEMISTRY
[2020-01-03] MEDS ORDERED: TYLENOL EXTRA STRENGTH 500 MG PO PRN (10:53)
[2020-01-03] MEDS: Vibramycin 100 MG PO SCH (11:03)
--- NOTE | 2020-01-03 12:40 | XRAY ---
Indication: Follow-up pneumonia. Comparison: One day earlier. PA/lateral chest demonstrates minimal improvement right lower lobe infiltrate which still persists. Remaining heart and lungs unremarkable.
--- NOTE | 2020-01-03 12:46 | XRAY ---
Indication: Pneumonia. Elevated d-dimer. Multiple contiguous axial images obtained through the chest using 96 cc Isovue 370 contrast and PE protocol. Comparison: None Mild respiration artifact. There is good opacification of the pulmonary arteries to include the lobar and segmental branches. No filling defect or pulmonary embolus. Heart is not enlarged. Aorta is normal in course and caliber. Small mediastinal lymph nodes, none pathologically enlarged. Lungs demonstrate patchy right lower lobe airspace disease with multifocal consolidations. No effusion. Remaining lungs clear with minimal left lung dependent atelectasis. Bony thorax intact with mild degenerative changes throughout the spine. Limited upper abdomen unremarkable. Impression: 1. Respiration artifact. 2. Negative pulmonary embolus. 3. Right lower lobe consolidating airspace disease without effusion.
[2020-01-03] MEDS: HUMALOG SQ PRN ×3 (13:15→21:51)
[2020-01-03] MEDS: Pepcid 20 MG PO SCH (21:50)
[2020-01-03] MEDS: Zocor 10MG PO SCH (21:51)
[2020-01-04 04:35] LABS: Hematocrit 31.4 % (35-47); Hemoglobin 9.7 gm/dl (12.0-16.0); Mean Corpuscular Hgb Concent. 30.9 g/dl (32-36); Mean Platelet Volume 10.7 fl (7.5-11.0); Platelet Count 321 K/mm3 (150-450); Red Blood Count 3.34 M/mm3 (4.1-5.4); Red Cell Distribution Width 15.4 % (11.5-14.0); White Blood Count 6.6 K/mm3 (4.0-10.5)
[2020-01-04 05:14] LABS: ALBUMIN 2.8 g/dL (3.5-5.0); ALKALINE PHOSPHATASE 111 U/L (38-126); ANION GAP 8.7 MEQ/L (5-15); BLOOD UREA NITROGEN 22 mg/dL (7-17); CHLORIDE 107 mmol/L (98-107); Calcium 8.7 mg/dL (8.4-10.2); Carbon Dioxide 26 mmol/L (22-30); Creatinine 1 0.73 mg/dL (0.52-1.04); Glucose 300 mg/dL (74-106); Potassium 4.3 mmol/L (3.5-5.1); SGOT/AST 124 U/L (14-36); SGPT/ALT 48 U/L (0-35); SODIUM 137 mmol/L (137-145)
[2020-01-04] MEDS: Sodium Chloride 0.9% 10 ML FLUSH Syringe IV SCH ×3 (06:57→22:29)
[2020-01-04 07:28] LABS: BAND 2 % (0.0-2.0); Lymphocytes 10 % (24-44); Neutrophils 88 % (36.0-66.0); Total Cells Counted 100; Toxic Granulation 2+
[2020-01-04 07:29] LABS: ANISOCYTOSIS 1+; Platelet Estimate NORMAL (NORMAL)
[2020-01-04] MEDS: Glucophage 500 MG PO SCH ×2 (07:59→16:51)
[2020-01-04] MEDS: HUMALOG SQ PRN ×4 (07:59→22:22)
[2020-01-04] MEDS ORDERED: Lantus Insulin SQ ONE (08:30)
[2020-01-04] MEDS: Levofloxacin 500MG/100ML D5W 500 MG/100 ML BAG IV SCH (09:15)
[2020-01-04] MEDS: solu-MEDROL 40 MG IV SCH (09:18)
[2020-01-04] MEDS: Januvia 50 MG PO SCH (09:20)
[2020-01-04] MEDS: NORVASC 5 MG PO SCH (09:21)
[2020-01-04] MEDS: Klor Con 10 MEQ PO SCH ×2 (09:21→22:21)
[2020-01-04] MEDS: Vitamin C 500 MG PO SCH (09:21)
[2020-01-04] MEDS: ENOXAPARIN SODIUM SQ SCH (09:22)
[2020-01-04 10:08] LABS: HEPATITIS A IGM Non Reactive (Non Reactive); HEPATITIS B VIRUS CORE TOT AB Non Reactive (Non Reactive); HEPATITIS C VIRUS ANTIBODY Non Reactive (Non Reactive); Hepatitis B Surface Ab.Quant. <3.50 mIU/mL (0.00-8.49); Hepatitis B Surface Antigen Non Reactive (Non Reactive)
--- NOTE | 2020-01-04 10:34 | PCM.NOTE ---
Date and Time: 01/04/20 1030 Subjective Assessment: Patient reports that she did not sleep well last night. She reports her breathing is about the same. She would like to go home but understands she may not strong enough to take care of herself and would prefer not to have oxygen at home. - Review of Systems Constitutional: Fatigue Eyes: No Symptoms Ears, Nose, & Throat: No Symptoms Respiratory: Short Of Breath Cardiac: No Symptoms Abdominal/Gastrointestinal: No Symptoms Genitourinary Symptoms: No Symptoms Musculoskeletal: No Symptoms Objective Exam General Appearance: no apparent distress Neurologic Exam: alert, cooperative Skin Exam: normal color, warm, dry, No rash Respiratory Exam: other (crackles at right lung base; equal breath sounds), No rhonchi, No wheezing Cardiovascular Exam: regular rate/rhythm, No murmur, No friction rub, No gallop Gastrointestinal/Abdomen Exam: soft, normal bowel sounds, No tenderness, No distention, No mass Extremity Exam: other (no c/c/e) OBJECTIVE DATA Vital Signs: Vital Signs - 24 hr Temp Pulse Resp BP Pulse Ox 01/04/20 07:56 95 01/04/20 07:09 98.0 F 72 18 134/70 96 01/04/20 04:00 97.6 F 87 20 139/63 95 01/04/20 00:00 97.1 F 76 20 124/59 96 01/03/20 20:00 96.5 F 90 22 121/65 96 01/03/20 19:03 95 01/03/20 16:00 98.3 F 84 22 110/64 96 01/03/20 12:00 97.6 F 77 24 126/76 96 Pain Assessment - Last Documented Pain Intensity 0 Pain Scale Used 0-10 Pain Scale Intake and Output: Intake & Output 01/02/20 01/03/20 01/04/20 01/05/20 06:59 06:59 06:59 06:59 Intake Total 1860 1353 2008 240 Output Total 2500 100 1100 Balance -640 1253 908 240 Weight 98.2 kg 98.4 kg 99.5 kg Lab Results: Accuchecks Date 01/04/20 Date 01/03/20 Time 05:00 Time 21:00 Accucheck Value: 306 Accucheck Value: 320 Accucheck Value: 387 Lab Results-Last 24 Hours 01/03/20 01/03/2001/02/20 Range/Units 04:00 05:00 05:00 WBC (4.0-10.5) K/mm3 RBC (4.1-5.4) M/mm3 Hgb (12.0-16.0) gm/dl Hct (35-47) % MCV (78-100) fl MCH (26-32) pg MCHC (32-36) g/dl RDW (11.5-14.0) % Plt Count (150-450) K/mm3 MPV (7.5-11.0) fl Segmented Neutrophils (36.0-66.0) % Band Neutrophils (0.0-2.0) % Lymphocytes (Manual) (24-44) % Toxic Granulation Platelet Estimate (NORMAL) RBC Morphology Anisocytosis D-Dimer 3632 H* (215-500) ng/mL Sodium (137-145) mmol/L Potassium (3.5-5.1) mmol/L Chloride (98-107) mmol/L Carbon Dioxide (22-30) mmol/L Anion Gap (5-15) MEQ/L BUN (7-17) mg/dL Creatinine (0.52-1.04) mg/dL Estimated GFR ML/MIN Glucose (74-106) mg/dL Calcium (8.4-10.2) mg/dL Total Bilirubin (0.2-1.3) mg/dL AST (14-36) U/L ALT (0-35) U/L Alkaline Phosphatase (38-126) U/L NT-Pro-B Natriuret Pep 888 (0-900) pg/mL Serum Total Protein (6.3-8.2) g/dL Albumin (3.5-5.0) g/dL Hepatitis A IgM Ab Non Reactive (Non Reactive) Hep Bs Antigen Non Reactive (Non Reactive) Hep Bs Antibody, Quant <3.50 (0.00-8.49) mIU/mL Hep B Core Total Ab Non Reactive (Non Reactive) Hepatitis C Antibody Non Reactive (Non Reactive) 01/04/20 01/04/20 Range/Units 04:15 04:15 WBC 6.6 (4.0-10.5) K/mm3 RBC 3.34 L (4.1-5.4) M/mm3 Hgb 9.7 L (12.0-16.0) gm/dl Hct 31.4 L (35-47) % MCV 94.0 (78-100) fl MCH 29.0 (26-32) pg MCHC 30.9 L (32-36) g/dl RDW 15.4 H (11.5-14.0) % Plt Count 321 (150-450) K/mm3 MPV 10.7 (7.5-11.0) fl Segmented Neutrophils 88 H (36.0-66.0) % Band Neutrophils 2 (0.0-2.0) % Lymphocytes (Manual) 10 L (24-44) % Toxic Granulation 2+ Platelet Estimate NORMAL (NORMAL) RBC Morphology ABNORMAL Anisocytosis 1+ D-Dimer (215-500) ng/mL Sodium 137 (137-145) mmol/L Potassium 4.3 (3.5-5.1) mmol/L Chloride 107 (98-107) mmol/L Carbon Dioxide 26 (22-30) mmol/L Anion Gap 8.7 (5-15) MEQ/L BUN 22 H (7-17) mg/dL Creatinine 0.73 (0.52-1.04) mg/dL Estimated GFR > 60.0 ML/MIN Glucose 300 H (74-106) mg/dL Calcium 8.7 (8.4-10.2) mg/dL Total Bilirubin 0.40 (0.2-1.3) mg/dL AST 124 H (14-36) U/L ALT 48 H (0-35) U/L Alkaline Phosphatase 111 (38-126) U/L NT-Pro-B Natriuret Pep (0-900) pg/mL Serum Total Protein 6.0 L (6.3-8.2) g/dL Albumin 2.8 L (3.5-5.0) g/dL Hepatitis A IgM Ab (Non Reactive) Hep Bs Antigen (Non Reactive) Hep Bs Antibody, Quant (0.00-8.49) mIU/mL Hep B Core Total Ab (Non Reactive) Hepatitis C Antibody (Non Reactive) Radiology Exams: Radiology Procedures Category Date Time Status CHEST 2 VIEWS (PA AND LAT) Routine Exams 01/03/20 12:17 Completed CHEST WITH CONTRAST [CT] Stat Exams 01/03/20 11:11 Completed Assessment/Plan (1) Pneumonia Current Visit: Yes Status: Acute Qualifiers: Pneumonia type: due to unspecified organism Laterality: right Lung location: lower lobe of lung Qualified Code(s): J18.9 - Pneumonia, unspecified organism Assessment & Plan: Continue with levofloxacin Day 3; continue with oxygen and wean as tolerated. Try incentive spirometry. Code(s): J18.9 - PNEUMONIA, UNSPECIFIED ORGANISM (2) Tachypnea Current Visit: Yes Status: Acute Assessment & Plan: Improved today; D-dimer was positive but chest CT was neg for PE. She continues on DVT prophylaxis with lovenox. Code(s): R06.82 - TACHYPNEA, NOT ELSEWHERE CLASSIFIED (3) Diabetes type 2, controlled Current Visit: Yes Status: Acute Qualifiers: Diabetes mellitus usp insulin use: without usp use Diabetes mellitus complication status: without complication Qualified Code(s): E11.9 - Type 2 diabetes mellitus without complications Assessment & Plan: Add lantus 10 units daily today and stopping solumedrol. Code(s): E11.9 - TYPE 2 DIABETES MELLITUS WITHOUT COMPLICATIONS (4) Elevated liver function tests Current Visit: Yes Status: Acute Assessment & Plan: Stable today; hepatitis panel pending. Code(s): R79.89 - OTHER SPECIFIED ABNORMAL FINDINGS OF BLOOD CHEMISTRY
[2020-01-04] MEDS: Sodium Chloride 0.9% W/ 20 mEq KCl/LITER 1,000 ML IV SCH (12:05)
[2020-01-04] MEDS: Zocor 10MG PO SCH (22:21)
[2020-01-04] MEDS: Pepcid 20 MG PO SCH (22:21)
[2020-01-05] MEDS: Sodium Chloride 0.9% 10 ML FLUSH Syringe IV SCH ×3 (05:18→22:07)
[2020-01-05 05:25] LABS: Hematocrit 30.7 % (35-47); Hemoglobin 9.5 gm/dl (12.0-16.0); Mean Cell Volume 94.2 fl (78-100); Mean Corpuscular Hemoglobin 29.1 pg (26-32); Mean Corpuscular Hgb Concent. 30.9 g/dl (32-36); Mean Platelet Volume 10.4 fl (7.5-11.0); Platelet Count 347 K/mm3 (150-450); Red Blood Count 3.26 M/mm3 (4.1-5.4); Red Cell Distribution Width 15.9 % (11.5-14.0); White Blood Count 5.7 K/mm3 (4.0-10.5)
[2020-01-05 05:44] LABS: ALBUMIN 2.7 g/dL (3.5-5.0); ALKALINE PHOSPHATASE 81 U/L (38-126); ANION GAP 8.9 MEQ/L (5-15); BLOOD UREA NITROGEN 22 mg/dL (7-17); CHLORIDE 106 mmol/L (98-107); Calcium 8.8 mg/dL (8.4-10.2); Carbon Dioxide 28 mmol/L (22-30); Creatinine 1 0.75 mg/dL (0.52-1.04); Glucose 212 mg/dL (74-106); Potassium 4.6 mmol/L (3.5-5.1); SGOT/AST 81 U/L (14-36); SGPT/ALT 39 U/L (0-35); SODIUM 139 mmol/L (137-145); Total Protein 5.8 g/dL (6.3-8.2)
[2020-01-05 06:20] LABS: Lymphocytes 5 % (24-44); Monocyte 2 % (0.0-12.0); Neutrophils 93 % (36.0-66.0); Total Cells Counted 100
[2020-01-05 06:21] LABS: Platelet Estimate NORMAL (NORMAL)
[2020-01-05] MEDS: Glucophage 500 MG PO SCH ×2 (08:40→17:07)
[2020-01-05] MEDS: Lantus Insulin SQ SCH (08:41)
[2020-01-05] MEDS: Januvia 50 MG PO SCH (09:47)
[2020-01-05] MEDS: NORVASC 5 MG PO SCH (09:47)
[2020-01-05] MEDS: Klor Con 10 MEQ PO SCH ×2 (09:48→22:08)
[2020-01-05] MEDS: Vitamin C 500 MG PO SCH (09:48)
[2020-01-05] MEDS: Levofloxacin 500MG/100ML D5W 500 MG/100 ML BAG IV SCH (09:48)
[2020-01-05] MEDS: ENOXAPARIN SODIUM SQ SCH (09:48)
--- NOTE | 2020-01-05 11:13 | PCM.NOTE ---
Date and Time: 01/05/20 1111 Subjective Assessment: Patient states she continues to have trouble sleeping and feels very tired. The nurses are trying to wean her off of oxygen. She would like to have home health at discharge but is not interested in a rehab stay. She is concerned about her who has been ill and will be coming home from [place] soon. - Review of Systems Constitutional: Fatigue Eyes: No Symptoms Ears, Nose, & Throat: No Symptoms Respiratory: Cough Cardiac: No Symptoms Abdominal/Gastrointestinal: No Symptoms Genitourinary Symptoms: No Symptoms Objective Exam General Appearance: no apparent distress, other (on oxygen by nasal cannula) Neurologic Exam: alert, cooperative, normal mood/affect Skin Exam: normal color, warm Respiratory Exam: other (crackles at right base; equal breath sounds; no retractions, no wheezing.) Cardiovascular Exam: regular rate/rhythm, normal heart sounds, No murmur, No friction rub, No gallop Gastrointestinal/Abdomen Exam: soft, normal bowel sounds, No tenderness, No distention, No mass Extremity Exam: normal inspection OBJECTIVE DATA Vital Signs: Vital Signs - 24 hr Temp Pulse Resp BP Pulse Ox 01/05/20 08:50 94 L 01/05/20 08:00 97.8 F 71 16 129/68 96 01/05/20 07:27 62 24 98 01/05/20 04:00 97.6 F 64 17 130/71 97 01/05/20 00:00 97.6 F 66 21 132/68 95 01/04/20 20:59 94 H 20 96 01/04/20 20:00 97.6 F 84 20 137/75 95 01/04/20 16:00 97.7 F 73 18 127/67 95 01/04/20 11:56 97.6 F 78 18 139/71 95 Pain Assessment - Last Documented Pain Intensity 0 Pain Scale Used 0-10 Pain Scale Intake and Output: Intake & Output 01/03/20 01/04/20 01/05/20 01/06/20 06:59 06:59 06:59 06:59 Intake Total 1353 2007 2234 380 Output Total 100 1100 1950 Balance 1253 908 284 380 Weight 98.4 kg 99.5 kg 99.3 kg Lab Results: Accuchecks Date 01/04/20 Date 01/04/20 Date 01/04/20 Time 22:00 Time 16:30 Time 11:30 Accucheck Value: 212 Accucheck Value: 255 Accucheck Value: 271 Accucheck Value: 333 Lab Results-Last 24 Hours 01/05/20 01/05/20 Range/Units 04:52 04:52 WBC 5.7 (4.0-10.5) K/mm3 RBC 3.26 L (4.1-5.4) M/mm3 Hgb 9.5 L (12.0-16.0) gm/dl Hct 30.7 L (35-47) % MCV 94.2 (78-100) fl MCH 29.1 (26-32) pg MCHC 30.9 L (32-36) g/dl RDW 15.9 H (11.5-14.0) % Plt Count 347 (150-450) K/mm3 MPV 10.4 (7.5-11.0) fl Segmented Neutrophils 93 H (36.0-66.0) % Lymphocytes (Manual) 5 L (24-44) % Monocytes (Manual) 2 (0.0-12.0) % Platelet Estimate NORMAL (NORMAL) RBC Morphology NORMAL Sodium 139 (137-145) mmol/L Potassium 4.6 (3.5-5.1) mmol/L Chloride 106 (98-107) mmol/L Carbon Dioxide 28 (22-30) mmol/L Anion Gap 8.9 (5-15) MEQ/L BUN 22 H (7-17) mg/dL Creatinine 0.75 (0.52-1.04) mg/dL Estimated GFR > 60.0 ML/MIN Glucose 212 H (74-106) mg/dL Calcium 8.8 (8.4-10.2) mg/dL Total Bilirubin 0.50 (0.2-1.3) mg/dL AST 81 H (14-36) U/L ALT 39 H (0-35) U/L Alkaline Phosphatase 81 (38-126) U/L Serum Total Protein 5.8 L (6.3-8.2) g/dL Albumin 2.7 L (3.5-5.0) g/dL Radiology Exams: Radiology Procedures Category Date Time Status CHEST 2 VIEWS (PA AND LAT) Routine Exams 01/03/20 12:17 Completed CHEST WITH CONTRAST [CT] Stat Exams 01/03/20 11:11 Completed Multi-Disciplinary Progress Notes: Multi-Disciplinary Progress Notes 01/05/20 10:57 Physical Therapy Note by Meri Moreno PT. IS UP IN CHAIR UPON PT ARRIVAL TO ROOM. PT REPORTS SHE IS FEELING BETTER TODAY. IS TO BE WEANING OFF O2. REFUSED REHAB STAY AT THIS TIME SO PLAN IS TO D/C HOME W/ HHC TOMORROW. PT. DOES NOT HAVE A WALKER THAT HAS BEEN FITTED FOR HER SO WOULD LIKE TO GET ONE AND WOULD HELP W/ HER GAIT SAFETY UPON D/C. SIT TO STAND CGA- MIN ASSIST SHE IS IN A LOW RECLINER. ON 1 L O2 AND O2 SATS 95 % AT REST. PT. AMBBULATED ~ 100' W/ ROLLER WALKER AND SBA-MOD I. NO UNSTEADINESS NOTED ; SLOW PACE; NEGOTIATED TURNS WELL. ABLE TO TRANSFER ON AND OFF COMMODE AND PERFORM HYGIENE INDEPENDENTLY. O2 ODALIS 92-95% W/ AMBULATION ON ROOM AIR. PT. NEEDS ROLLER WALKER AT HOME TO INCREASE FUNCTIONAL INDEPENDENCE AND SAFETY W/ MOBILITY AT HOME. ALSO WILL NEED [facility] REFERRAL FOR PT TO PROGRESS LE STRENGTH, BALANCE, AND ENDURANCE TO MAXIMIZE FUNCTIONAL POTENTIAL AT HOME. WILL CONT. PT TO ADDRESS IMPROVING FUNCTION UNTIL D/C. MERI MORENO, PT Initialized on 01/05/20 10:57 - END OF NOTE 01/05/20 10:17 Case Management Note by Zuleika Hatch REFERRAL FAXED TO [facility] AT THIS TIME Initialized on 01/05/20 10:17 - END OF NOTE 01/05/20 09:55 Nutrition Note by Clau Curran F/u Note: House regular diet con't with 50-100% po intake. admission weight 101.4 kg; current weight 99.3 kg. Labs 6/3= BUN 22, glu 212, alb 2.7, hgb 9.5, hct 30.7. goal of po intake >=75% not met consistently and ongoing; goal of glu wnl not met - change to glu to decrease. Recommend 1800CC diet. Will monitor and f/u prn. T.MARLI Curran Initialized on 01/05/20 09:55 - END OF NOTE 01/05/20 09:55 Case Management Note by Zuleika Hatch S/W PATIENT ABOUT [facility] RECOMMENDATIONS FOR REHAB STAY- PATIENT STRONGLY REFUSED. SHE STATED SHE FELT LIKE SHE COULD GET HERSELF BACK AND FORTH TO THE RESTROOM. SHE REPORTED LOTS OF FAMILY SUPPORT AND THAT HER SON COMES TO CHECK ON HER DAILY. PATIENT AGREEABLE TO HOME HEALTHCARE AT DISCHARGE. HER USES [facility] AND SHE WOULD LIKE TO USE THEM WELL. Initialized on 01/05/20 09:55 - END OF NOTE Assessment/Plan (1) Pneumonia Current Visit: Yes Status: Acute Qualifiers: Pneumonia type: due to unspecified organism Laterality: right Lung location: lower lobe of lung Qualified Code(s): J18.9 - Pneumonia, unspecified organism Assessment & Plan: Continue current medication; try to wean off oxygen. If she can be weaned off oxygen, may be ready for discharge to home tomorrow with home health care. Code(s): J18.9 - PNEUMONIA, UNSPECIFIED ORGANISM (2) Tachypnea Current Visit: Yes Status: Resolved Code(s): R06.82 - TACHYPNEA, NOT ELSEWHERE CLASSIFIED (3) Diabetes type 2, controlled Current Visit: Yes Status: Acute Qualifiers: Diabetes mellitus exterminator termite insulin use: without custodial use Diabetes mellitus complication status: without complication Qualified Code(s): E11.9 - Type 2 diabetes mellitus without complications Assessment & Plan: Continue current mediation. Code(s): E11.9 - TYPE 2 DIABETES MELLITUS WITHOUT COMPLICATIONS (4) Elevated liver function tests Current Visit: Yes Status: Acute Assessment & Plan: Improving so most likely due to acute infection. Hepatitis panel was negative. Code(s): R79.89 - OTHER SPECIFIED ABNORMAL FINDINGS OF BLOOD CHEMISTRY
[2020-01-05] MEDS: HUMALOG SQ PRN (12:01)
[2020-01-05] MEDS: Zocor 10MG PO SCH (22:08)
[2020-01-05] MEDS: Pepcid 20 MG PO SCH (22:08)
[2020-01-06] MEDS: Lantus Insulin SQ SCH (07:43)
[2020-01-06] MEDS: Sodium Chloride 0.9% 10 ML FLUSH Syringe IV SCH (07:43)
[2020-01-06] MEDS: Glucophage 500 MG PO SCH (07:43)
[2020-01-06] MEDS: Januvia 50 MG PO SCH (09:10)
[2020-01-06] MEDS: Vitamin C 500 MG PO SCH (09:10)
[2020-01-06] MEDS: Klor Con 10 MEQ PO SCH (09:10)
[2020-01-06] MEDS: NORVASC 5 MG PO SCH (09:10)
[2020-01-06] MEDS: ENOXAPARIN SODIUM SQ SCH (09:10)
[2020-01-06] MEDS ORDERED: Levofloxacin 250MG Tablet PO SCH ×2 (10:00)
--- NOTE | 2020-01-06 15:02 | PCM.DCORD ---
- Discharge Discharge Date: 01/06/20 Disposition: Swing Bed @ [facility] Condition: Fair Prescriptions: New Lorazepam 1 mg [Ativan 1 MG] 0.5 mg PO Q6H PRN PRN tablet PRN Reason: Anxiety Enoxaparin Sodium [Enoxaparin Sodium] 40 mg SQ DAILY syringe Potassium Chloride 10 Meq Tab* [Klor Con 10 MEQ] 10 meq PO BID tab Insulin Glargine [Lantus Insulin] 10 unit SQ AMINSULIN unit Levofloxacin [Levofloxacin 250MG Tablet] 250 mg PO DAILY tab Mag Hydrox/Al Hydrox/Simeth [Maalox Es 30 ml Unit Dose] 30 ml PO Q4H PRN PRN udcup PRN Reason: UPSET STOMACH Famotidine 20 mg [Pepcid 20 MG] 30 mg PO HS tablet Acetaminophen 500 mg [Tylenol Extra Strength 500 mg] 1,000 mg PO Q6H PRN PRN tablet PRN Reason: PAIN OR FEVER Albuterol Common Canister [Ventolin Common Canister] 4 puff IH Q4H PRN PRN puff PRN Reason: Shortness Of Breath/Wheezing Continue Metformin HCl 500 mg [Glucophage 500 MG] 1,000 mg PO DAILY Amlodipine Besylate 5 mg [Norvasc 5 mg] 5 mg PO DAILY Sitagliptin Phosphate [Januvia] 100 mg PO DAILY Atorvastatin Calcium [Lipitor] 10 mg PO HS Ascorbic Acid 500 mg [Vitamin C 500 MG] 500 mg PO DAILY Lutein/Zeaxanthin [Lutein-Zeaxanthin 20-1 mg Sfgl] 1 each PO DAILY Metformin HCl 500 mg [Glucophage 500 MG] 500 mg PO HS Discontinued Acetaminophen 325 mg [Tylenol 325 mg] 650 mg PO Q4H PRN PRN PRN Reason: Pain/fever Additional Instructions: Discharged to swing bed at [facility]. PT/OT evaluation and treatment please. Follow up with: PAM MCCARTHY [Primary Care Provider] - 1 Week
--- NOTE | 2020-01-06 15:50 | DS ---
DISCHARGE DIAGNOSES: 1) RIGHT LOWER LOBE PNEUMONIA. 2) TACHYPNEA. 3) DIABETES MELLITUS TYPE 2 CONTROLLED. 4) ELEVATED LIVER FUNCTION TEST. DISCHARGE PHYSICAL EXAMINATION: VITALS: Temperature current 97.6F, temperature max 98.1 heart rate 95, respiratory rate 18, blood pressure 121/72, weight 98.4 kg. Oxygen saturation 92% on room air. GENERAL: The patient is pleasant talkative lady sitting up in no acute distress. CVS: She has a regular rate and rhythm. No murmurs, gallops or rubs are appreciated. CHEST: She has crackles in her right lower lung field. Clear to auscultation in left lung field. Equal breath sounds. No tachypnea. No retractions. ABDOMEN: Soft, nontender, nondistended with normal bowel sounds. EXTREMITIES: No clubbing, cyanosis or edema. SKIN: Warm, dry and intact. HOSPITAL COURSE: 1) RIGHT LOWER LOBE PNEUMONIA: This was found on chest x-ray. She did not have an elevated white blood cell count but she did have a left shift. She had two negative COVID tests. She continues to have infiltrate on x-ray. She is weak and deconditioned and requires rehabilitation. She is being discharged to a swing-bed here at our facility. 2) TACHYPNEA: Now resolved. She was weaned off of oxygen. 3) DIABETES MELLITUS TYPE 2 CONTROLLED: Will continue her current dose of Metformin due to decreased renal function. 4) ELEVATED LIVER FUNCTION TEST: Most likely due to the illness. Her hepatitis panel was negative and these continued trend down. 5) GAIT INSTABILITY: I signed a prescription for Rollator walker for her per PT recommendation.
[2020-01-06 16:46] VITALS: BP 122/80; PULSE 82; O2SAT 94
== END 2020-01-06 17:00 | disposition swing bed (61) | DRG 195 ==
LOC: ED 18:18 → MED SURG 20:19
PROVIDERS: ADMIT Family Medicine; ATTEND Family Medicine
DX: J18.9 Pneumonia, unspecified organism (principal); E87.6 Hypokalemia; E11.9 Type 2 diabetes mellitus without complications; R94.5 Abnormal results of liver function studies; R05 Cough; J44.9 Chronic obstructive pulmonary disease, unspecified; R53.83 Other fatigue; E86.0 Dehydration; R53.1 Weakness; R51 Headache; E78.00 Pure hypercholesterolemia, unspecified; R06.82 Tachypnea, not elsewhere classified; R26.81 Unsteadiness on feet; Z79.899 Other long term (current) drug therapy
CPT/HCPCS: 36415; 36600; 51702; 71045; 71046; 71260; 80051; 80053; 80074; 81001; 82248; 82375; 82803; 82962; 83036; 83605; 83735; 83880; 84100; 84484; 85025; 85027; 85379; 87040; 87086; 87631; 87651; 93005; 93041; 94640; 94760; 94762; 96360; 96365; 96368; 97110; 97161; 97530; 99291; U0003; 36000; 99285; J0456; J0696; J1650; J1817; J1956; J2920; A9270-GY

== ENCOUNTER 2020-01-06 16:25 | Inpatient (IN) | payer MEDICARE, OTHER ==
[2020-01-06] MEDS ORDERED: VENTOLIN COMMON CANISTER IH PRN (17:13)
[2020-01-06] MEDS ORDERED: Aplisol ID ONE (17:13)
[2020-01-06] MEDS ORDERED: TYLENOL EXTRA STRENGTH 500 MG PO PRN (17:13)
[2020-01-06] MEDS ORDERED: MAALOX ES 30 ML UNIT DOSE PO PRN (17:13)
[2020-01-06] MEDS ORDERED: Ativan 0.5 MG PO PRN (17:30)
[2020-01-06] MEDS: Pepcid 20 MG PO SCH (23:18)
[2020-01-06] MEDS: Zocor 10MG PO SCH (23:18)
[2020-01-06] MEDS: Klor Con 10 MEQ PO SCH (23:20)
[2020-01-07] MEDS: Glucophage 500 MG PO SCH ×2 (08:33→17:33)
[2020-01-07] MEDS: Lantus Insulin SQ SCH (08:34)
[2020-01-07] MEDS: Levofloxacin 250MG Tablet PO SCH (09:33)
[2020-01-07] MEDS: ENOXAPARIN SODIUM SQ SCH (09:33)
[2020-01-07] MEDS: Klor Con 10 MEQ PO SCH ×2 (09:33→21:18)
[2020-01-07] MEDS: Januvia 50 MG PO SCH (09:33)
[2020-01-07] MEDS: Vitamin C 500 MG PO SCH (09:34)
[2020-01-07] MEDS: NORVASC 5 MG PO SCH (09:34)
[2020-01-07] MEDS: Zocor 10MG PO SCH (21:18)
[2020-01-07] MEDS: Pepcid 20 MG PO SCH (21:18)
[2020-01-08] MEDS: Glucophage 500 MG PO SCH ×2 (07:56→17:00)
[2020-01-08] MEDS: Lantus Insulin SQ SCH (07:57)
[2020-01-08] MEDS: Vitamin C 500 MG PO SCH (09:27)
[2020-01-08] MEDS: ENOXAPARIN SODIUM SQ SCH (09:27)
[2020-01-08] MEDS: Levofloxacin 250MG Tablet PO SCH (09:27)
[2020-01-08] MEDS: Klor Con 10 MEQ PO SCH ×2 (09:27→21:02)
[2020-01-08] MEDS: NORVASC 5 MG PO SCH (09:27)
[2020-01-08] MEDS: Januvia 50 MG PO SCH (09:27)
[2020-01-08] MEDS: Zocor 10MG PO SCH (21:02)
[2020-01-08] MEDS: Pepcid 20 MG PO SCH (21:02)
[2020-01-09] MEDS: Glucophage 500 MG PO SCH ×2 (08:21→16:54)
[2020-01-09] MEDS: Lantus Insulin SQ SCH (08:22)
[2020-01-09] MEDS: NORVASC 5 MG PO SCH (08:33)
[2020-01-09] MEDS: Januvia 50 MG PO SCH (08:33)
[2020-01-09] MEDS: Klor Con 10 MEQ PO SCH ×2 (08:34→21:00)
[2020-01-09] MEDS: Levofloxacin 250MG Tablet PO SCH (08:34)
[2020-01-09] MEDS: Vitamin C 500 MG PO SCH (08:34)
[2020-01-09] MEDS: ENOXAPARIN SODIUM SQ SCH (08:34)
[2020-01-09] MEDS: HUMALOG SQ PRN (11:52)
[2020-01-09] MEDS: Zocor 10MG PO SCH (21:00)
[2020-01-09] MEDS: Pepcid 20 MG PO SCH (21:00)
[2020-01-10] MEDS: Lantus Insulin SQ SCH (08:09)
[2020-01-10] MEDS: Glucophage 500 MG PO SCH ×2 (08:10→18:08)
[2020-01-10] MEDS: ENOXAPARIN SODIUM SQ SCH (09:19)
[2020-01-10] MEDS: NORVASC 5 MG PO SCH (09:21)
[2020-01-10] MEDS: Vitamin C 500 MG PO SCH (09:21)
[2020-01-10] MEDS: Klor Con 10 MEQ PO SCH ×2 (09:21→21:07)
[2020-01-10] MEDS: Januvia 50 MG PO SCH (09:21)
[2020-01-10] MEDS: HUMALOG SQ PRN (12:11)
--- NOTE | 2020-01-10 13:47 | HP ---
SWINGBED H&P: HISTORY OF PRESENT ILLNESS: This is a 69 y/o lady who was in the acute bed for a right lower lobe pneumonia. She had initially been placed on the COVID lockett and was tested for COVID X 2 and they were negative. She was then transferred to the non-COVID lockett and started on antibiotics which she has continued. She is on levofloxacin to complete a 7 day course which will be done on 01/09/2020. She has been able to be weaned off of O2. She is doing rehab to gain strength to be able to take care of herself back at home. Her initial plan had been to go to [facility], but they cannot take her with an infiltrate on her chest x-ray. Her last chest x-ray has continued to show a right lower lobe pneumonia. The patient reports she is feeling much better, although she is still tired, but she does feel like she is improving. She reports her appetite just hasn't come back yet. She continues to have occasional cough. Denies any shortness of breath or chest pain. REVIEW OF SYSTEMS: As noted in the HPI. PAST MEDICAL HISTORY: She reports being very well in the past and not needing any hospitalization. PAST SURGICAL HISTORY: She reports appendectomy. SOCIAL HISTORY: She is and lives with her . FAMILY HISTORY: Noncontributory. CURRENT MEDICATIONS: Please see her current MAR. ALLERGIES: SULFA. PHYSICAL EXAMINATION: VITAL SIGNS: Temperature current 98.1, temperature maximum 98.1, heart rate 84, respiratory rate 18, O2 saturation 94% on room air, BP 117/77, weight 98 Kg. GENERAL: The patient is a pleasant, talkative lady lying in bed in no acute distress. CVS: She has a regular rate and rhythm. No murmurs, gallops, or rubs. CHEST: She has crackles at the right lower lung field. Equal breath sounds. No tachypnea. No wheezes. No retractions. ABDOMEN: Soft, nontender, nondistended. EXTREMITIES: No clubbing, cyanosis, or edema. SKIN: Warm, dry, and intact. ASSESSMENT AND PLAN: 1. RIGHT LOWER LOBE PNEUMONIA. Will continue with the levofloxacin to finish out a 7 day course. Continue with supportive care and rehab. 2. DIABETES MELLITUS TYPE 2 CONTROLLED. Continue with current medications for this. 3. ELEVATED LIVER FUNCTION TESTS. Is most likely due to her illness. Her hepatitis panel is negative and liver function tests have been trending down. 4. GAIT INSTABILITY. I signed a prescription for a rollator walker for her per physical therapy recommendation.
[2020-01-10] MEDS: Pepcid 20 MG PO SCH (21:06)
[2020-01-10] MEDS: Zocor 10MG PO SCH (21:07)
[2020-01-11] MEDS: Lantus Insulin SQ SCH (07:48)
[2020-01-11] MEDS: Glucophage 500 MG PO SCH ×2 (07:48→16:34)
[2020-01-11] MEDS: Klor Con 10 MEQ PO SCH ×2 (11:10→21:25)
[2020-01-11] MEDS: Vitamin C 500 MG PO SCH (11:10)
[2020-01-11] MEDS: Januvia 50 MG PO SCH (11:10)
[2020-01-11] MEDS: NORVASC 5 MG PO SCH (11:10)
[2020-01-11] MEDS: ENOXAPARIN SODIUM SQ SCH (11:13)
[2020-01-11] MEDS: Pepcid 20 MG PO SCH (21:24)
[2020-01-11] MEDS: Zocor 10MG PO SCH (21:25)
[2020-01-12] MEDS: Glucophage 500 MG PO SCH ×2 (07:47→16:59)
[2020-01-12] MEDS: Lantus Insulin SQ SCH (07:48)
[2020-01-12] MEDS: Januvia 50 MG PO SCH (09:16)
[2020-01-12] MEDS: NORVASC 5 MG PO SCH (09:16)
[2020-01-12] MEDS: ENOXAPARIN SODIUM SQ SCH (09:16)
[2020-01-12] MEDS: Vitamin C 500 MG PO SCH (09:16)
[2020-01-12] MEDS: Klor Con 10 MEQ PO SCH ×2 (09:16→21:12)
[2020-01-12] MEDS: Pepcid 20 MG PO SCH (21:11)
[2020-01-12] MEDS: Zocor 10MG PO SCH (21:12)
[2020-01-13 07:10] VITALS: BP 123/68; PULSE 75; O2SAT 96
[2020-01-13] MEDS: Glucophage 500 MG PO SCH ×2 (07:46→16:56)
[2020-01-13] MEDS: Lantus Insulin SQ SCH (07:47)
[2020-01-13] MEDS: ENOXAPARIN SODIUM SQ SCH (08:27)
[2020-01-13] MEDS: Januvia 50 MG PO SCH (08:27)
[2020-01-13] MEDS: NORVASC 5 MG PO SCH (08:28)
[2020-01-13] MEDS: Klor Con 10 MEQ PO SCH (08:28)
[2020-01-13] MEDS: Vitamin C 500 MG PO SCH (08:28)
--- NOTE | 2020-01-13 16:00 | PCM.DS ---
Discharge Summary Date of Admission: 01/06/20 17:00 Admitting Physician: OPAL DANG Primary Care Provider: PAM MCCARTHY Allergies Allergies Sulfa (Sulfonamide Antibiotics) Adverse Reaction (Intermediate, Verified 18:51) abdominal pain Hospital Summary - Hospital Course Hospital Course: patient was admitted and cared for with pneumonia, weak and unsteady so put in swing bed, doing well and ready for discharge. no cough, no shortness of breath , no fever. patient was initially admitted and had negative covid testing x 2, treated for sepsis and pneumonia and has improved with levaquin and PT/OT in swing bed. - Vitals & Intake/Output Vital Signs: Vital Signs Temperature 98.1 F 01/13/20 07:09 Pulse Rate 75 01/13/20 07:09 Respiratory Rate 18 01/13/20 07:09 Blood Pressure 123/68 01/13/20 07:09 O2 Sat by Pulse Oximetry 96 01/13/20 07:09 Intake & Output: Intake & Output 01/11/20 01/12/20 01/13/20 01/14/20 11:59 11:59 11:59 11:59 Intake Total 1740 1300 1970 360 Output Total 2 Balance 1740 1300 1968 360 Weight 94 kg - Lab Lab Results-Last 24 Hrs: Accuchecks Date 01/13/20 Date 01/13/2001/12/2001/12/20 Time 11:30 Time 07:30 Time 16:55 Time 16:55 Accucheck Value: 175 Accucheck Value: 135 Accucheck Value: 158 Accucheck Value: 172 Micro Results-Entire Visit: Accuchecks Date 01/13/2001/13/2001/12/20 Date 01/12/20 Time 11:30 Time 07:30 Time 16:55 Time 16:55 Accucheck Value: 175 Accucheck Value: 135 Accucheck Value: 158 Accucheck Value: 172 - Procedures and Test Procedures and Tests throughout Hospitalization: Therapy Orders & Screens 01/06/20 17:13 OT Eval and Treat ( Order) ROUTINE Comment: Consulting Provider: OPAL DANG Physician Instructions: Reason For Exam: DECONDITIONING R/T SEPSIS/PNEUMONIA Evaluate: Yes Treat: Yes Reason for Evaluation: DECONDITIONING R/T SEPSIS, PNEUMONIA Diagnosis: DECONDITIONING R/T SEPSIS, PNEUMONIA PT Eval & Treat (MD Order) ROUTINE Reason for Eval:: deconditioning; pneumonia Diagnosis: Sepsis, pneumonia, possible COVID 19 Oxygen Nasal Cannula 2 lpm Comment: RT Miscellaneous Order ROUTINE Comment: Physician Instructions: Reason For Exam: WEAN OXYGEN TOLERATED Diagnosis: Sepsis, pneumonia, possible COVID 19 01/07/20 16:00 OT Clarification Order ROUTINE Comment: Physician Instructions: Reason For Exam: OT Clarification: OT TO TX 5X/WK EXCLUDING WEEKENDS AND LEGAL HOLIDAYS TO ADDRESS MRS. SAAVEDRA'S OVERALL ENDURANCE, STRENGTH, INDEPENDENCE WITH ADLS , AND OVERALL FUNCTIONAL MOBILITY WITH GOAL FOR HER TO RETURN TO HOME WHERE SHE WILL HAVE TO BE PRIMARY CAREGIVER FOR SPOUSE WHO IS CURRENTLY HOSPITALIZED WITH A NEW BKA. 01/07/20 16:54 PT Clarification Order ROUTINE Comment: Physician Instructions: Reason For Exam: PT Clarification: PT TO RX 5X/WK UNTIL D/C TO ADDRESS FUNCTIONAL MOBILITY AND GAIT TRAINING, THER EX, BALANCE AND ENDURANCE ACTIVITIES WELL PT. ED. RE: HEP AND SAFETY AWARENESS TO MAXIMIZE FUNCTIONAL INDEPENDENCE. Discharge Exam General Appearance: no apparent distress, alert Respiratory Exam: normal breath sounds, lungs clear, No respiratory distress Cardiovascular Exam: regular rate/rhythm, normal heart sounds Gastrointestinal/Abdomen Exam: soft, No tenderness, No mass Skin Exam: normal color, warm, dry Final Diagnosis/Problem List - Final Discharge Diagnosis/Problem (1) Sepsis Current Visit: No Status: Acute (2) Pneumonia Current Visit: No Status: Acute Assessment & Plan: patient completed 10 day course of levaquin, symptomatically resolved and doing well. Code(s): J18.9 - PNEUMONIA, UNSPECIFIED ORGANISM (3) Weakness Current Visit: Yes Status: Acute Assessment & Plan: improved with PT, rx walker Code(s): R53.1 - WEAKNESS (4) Diabetes type 2, controlled Current Visit: No Status: Acute Code(s): E11.9 - TYPE 2 DIABETES MELLITUS WITHOUT COMPLICATIONS - Discharge Disposition: Home, Self-Care Condition: Stable Prescriptions: New Walker [Ultra-Light Rollator] 1 each UD #1 each Continue Metformin HCl 500 mg [Glucophage 500 MG] 1,000 mg PO DAILY Amlodipine Besylate 5 mg [Norvasc 5 mg] 5 mg PO DAILY Sitagliptin Phosphate [Januvia] 100 mg PO DAILY Atorvastatin Calcium [Lipitor] 10 mg PO HS Ascorbic Acid 500 mg [Vitamin C 500 MG] 500 mg PO DAILY Lutein/Zeaxanthin [Lutein-Zeaxanthin 20-1 mg Sfgl] 1 each PO DAILY Metformin HCl 500 mg [Glucophage 500 MG] 500 mg PO HS Lorazepam 1 mg [Ativan 1 MG] 0.5 mg PO Q6H PRN PRN tablet PRN Reason: Anxiety Potassium Chloride 10 Meq Tab* [Klor Con 10 MEQ] 10 meq PO BID tab Insulin Glargine [Lantus Insulin] 10 unit SQ AMINSULIN unit Mag Hydrox/Al Hydrox/Simeth [Maalox Es 30 ml Unit Dose] 30 ml PO Q4H PRN PRN udcup PRN Reason: UPSET STOMACH Famotidine 20 mg [Pepcid 20 MG] 30 mg PO HS tablet Acetaminophen 500 mg [Tylenol Extra Strength 500 mg] 1,000 mg PO Q6H PRN PRN tablet PRN Reason: PAIN OR FEVER Albuterol Common Canister [Ventolin Common Canister] 4 puff IH Q4H PRN PRN puff PRN Reason: Shortness Of Breath/Wheezing Discontinued Enoxaparin Sodium [Enoxaparin Sodium] 40 mg SQ DAILY syringe Levofloxacin [Levofloxacin 250MG Tablet] 250 mg PO DAILY tab Follow up with: PAM MCCARTHY [Primary Care Provider] - 1 Week
[2020-01-13] MEDS: HUMALOG SQ PRN (17:02)
== END 2020-01-13 18:18 | disposition home or self-care (01) | DRG 871 ==
LOC: MED SURG 17:00
PROVIDERS: ADMIT Internal Medicine; ATTEND Internal Medicine
DX: A41.9 Sepsis, unspecified organism (principal); J18.9 Pneumonia, unspecified organism; R53.1 Weakness; E11.9 Type 2 diabetes mellitus without complications; Z79.899 Other long term (current) drug therapy
CPT/HCPCS: 82962; 94760; J1650; J1817; 97110-GP; A9270-GY